=== PATIENT | female | born 1970 | race Caucasian/White ===

== ENCOUNTER → 2018-01-02 | Outpatient (REF) | payer SELFPAY, OTHER ==
[2018-01-02 12:04] LABS: HEMATOCRIT 43.3 % (36.0-47.0); HEMOGLOBIN 14.2 g/dl (12.0-15.5); MEAN CORPUSCULAR HEMOGLOBIN 28.6 pg (27.0-33.0); MEAN CORPUSCULAR HGB CONC 32.8 g/dl (32.0-36.5); MEAN CORPUSCULAR VOLUME 87.3 fl (80.0-96.0); PLATELET COUNT, AUTOMATED 271 10^3/uL (150-450); RED BLOOD COUNT 4.96 10^6/uL (4.00-5.40); RED CELL DISTRIBUTION WIDTH 12.3 % (11.5-14.5)
[2018-01-02 12:25] LABS: INR 2.45; PROTHROMBIN TIME 27.1 SECONDS (12.1-14.4)
== END ==
LOC: M SFHCPLAZ 09:33
DX: Z51.81 Encounter for therapeutic drug level monitoring (principal); Z79.899 Other long term (current) drug therapy

== ENCOUNTER 2020-04-09 08:23 | Emergency (ER) | payer OTHER, SELFPAY ==
[~2020-04-09] VITALS: Ht 172.7 cm; Wt 84.0 kg
[~2020-04-09 08:23] MED LIST: ASTELIN NASAL; AUG875 PO; BENADRYL25 PO; BIAXIN500 PO; COUM1TAB17; DESONIDECR TOPICAL; FERR325T; FLEXERIL10 PO; NASONEX NASAL; NEXIUM40 PO; PROTONIX40 PO; REGLAN10 PO; TESSALO100 PO; ZANTAC150 PO; ZITHROZPAK PO
[2020-04-09 09:10] VITALS: BP 136/83
[2020-04-09] MEDS ORDERED: DOXY100C37 PO (09:16)
[2020-04-09 09:36] LABS: ALT/SGPT 41 U/L (12-78); BILIRUBIN,DIRECT < 0.1 MG/DL (0.0-0.2); BILIRUBIN,TOTAL 0.4 MG/DL (0.2-1.0); TOTAL PROTEIN 7.6 GM/DL (6.4-8.2)
[2020-04-09 09:37] LABS: ALBUMIN 4.1 GM/DL (3.2-5.2)
[2020-04-11 17:08] LABS: Lyme Disease IgG/IgM Antibodie <0.91 ISR (0.00-0.90); Lyme Disease IgM Ab Quantitati <0.80 index (0.00-0.79)
== END 2020-04-09 09:43 | disposition home or self-care (01) ==
LOC: M ED 08:23
DX: R21 Rash and other nonspecific skin eruption (principal); M79.10 Myalgia, unspecified site; A69.20 Lyme disease, unspecified; J45.909 Unspecified asthma, uncomplicated; K58.9 Irritable bowel syndrome, unspecified; D68.59 Other primary thrombophilia; Z86.718 Personal history of other venous thrombosis and embolism; Z79.01 Long term (current) use of anticoagulants; Z88.8 Allergy status to other drugs, medicaments and biological substances

== ENCOUNTER → 2020-04-12 | Outpatient (CLI) | payer SELFPAY ==
[~2020-04-12] MED LIST changes: +DOXY100C37 PO
[2020-04-12 17:23] LABS: INR 1.91; PROTHROMBIN TIME 22.3 SECONDS (12.5-14.3)
== END ==
LOC: M LAB 16:13
PROVIDERS: ATTEND Physician Assistant Medical
DX: A69.29 Other conditions associated with Lyme disease (principal)

== ENCOUNTER → 2020-06-02 | Outpatient (CLI) | payer SELFPAY ==
--- NOTE | 2020-06-02 15:32 | REP ---
INDICATION: N63.31 LUMP OF AXILLARY TAIL OF RT BREAST. COMPARISON: 06/26/2007. TECHNIQUE: MLO and CC views bilateral breasts performed with tomosynthesis. Focused right axillary ultrasound performed. FINDINGS: Moderate fibroglandular tissue is seen bilaterally. There is no suspicious mass or architectural distortion. There are no clustered microcalcifications. Ultrasound right axillary region performed at the site of the palpable lump. At that location there are 2 morphologically normal appearing lymph nodes with fatty santi, measuring 1.8 x 1.7 x 0.9 cm and 1.8 x 1.8 x 1.2 cm. The Volpara volumetric breast density pattern is B. IMPRESSION: BIRADS/ACR category 2 benign. No mass or clustered microcalcifications. At the site of the palpable lump in the right axillary region 2 morphologically normal appearing lymph nodes are present. These do not appear to be suspicious. Clinical correlation and follow-up recommended. This patient's Tyrer-Cuzick lifetime breast cancer risk assessment score is 8.0%. This mammogram was interpreted with the aid of an FDA-approved computer-aided detection system. The patient states she had a clinical breast exam in May 2020. The patient letter being requested is M2. RECOMMENDATION: Repeat screening mammography recommended 1 year (for women over 40). Recommend clinical correlation and follow-up of right axillary lymph nodes. <Electronically signed by Navneet Hyde > 06/02/20 1527
== END ==
LOC: M WHC 12:59
PROVIDERS: ATTEND Nurse Practitioner Family
DX: N63.31 Unspecified lump in axillary tail of the right breast (principal)

== ENCOUNTER → 2021-05-16 | Outpatient (CLI) | payer SELFPAY ==
[~2021-05-16] MED LIST changes: +DOXY-443 PO; -DOXY100C37 PO
[2021-05-16 10:53] LABS: HEMATOCRIT 43.1 % (36.0-47.0); MEAN CORPUSCULAR HGB CONC 32.5 g/dl (32.0-36.5); MEAN CORPUSCULAR VOLUME 89.2 fl (80.0-96.0); PLATELET COUNT, AUTOMATED 280 10^3/uL (150-450); RED BLOOD COUNT 4.83 10^6/uL (4.00-5.40); WHITE BLOOD COUNT 6.8 10^3/uL (4.0-10.0)
[2021-05-16 11:24] LABS: ALBUMIN 3.8 GM/DL (3.2-5.2); ALT/SGPT 48 U/L (12-78); BILIRUBIN,TOTAL 0.3 MG/DL (0.2-1.0); BLOOD UREA NITROGEN 17 MG/DL (7-18); CARBON DIOXIDE LEVEL 29 MEQ/L (21-32); CHLORIDE LEVEL 108 MEQ/L (98-107); CHOLESTEROL LEVEL 322 MG/DL (<200); CHOLESTEROL RISK RATIO 6.075 (<5); CREATININE FOR GFR 0.77 MG/DL (0.55-1.30); GLOMERULAR FILTRATION RATE > 60.0 (>51); GLUCOSE, FASTING 99 MG/DL (70-100); HDL CHOLESTEROL 53 MG/DL (>40); LDL CHOLESTEROL 215 MG/DL (<100); NON-HDL-C 269 MG/DL; POTASSIUM SERUM 3.6 MEQ/L (3.5-5.1); SODIUM LEVEL 142 MEQ/L (136-145); TOTAL PROTEIN 7.2 GM/DL (6.4-8.2); TRIGLYCERIDES LEVEL 271 MG/DL (<150)
== END ==
LOC: M LAB 10:01
PROVIDERS: ATTEND Nurse Practitioner Adult Health
DX: E78.2 Mixed hyperlipidemia (principal); Z79.01 Long term (current) use of anticoagulants; D68.59 Other primary thrombophilia

== ENCOUNTER → 2022-06-13 | Outpatient (CLI) | payer SELFPAY ==
[2022-06-13 13:40] LABS: HEMATOCRIT 43.8 % (36.0-47.0); HEMOGLOBIN 13.9 g/dl (12.0-15.5); MEAN CORPUSCULAR HGB CONC 31.7 g/dl (32.0-36.5); MEAN CORPUSCULAR VOLUME 91.3 fl (80.0-96.0); PLATELET COUNT, AUTOMATED 294 10^3/uL (150-450); WHITE BLOOD COUNT 6.5 10^3/uL (4.0-10.0)
[2022-06-13 14:12] LABS: ALBUMIN 3.9 G/DL (3.2-5.2); ALKALINE PHOSPHATASE 89 U/L (46-116); ALT/SGPT 41 U/L (7.0-40); AST/SGOT 25 U/L (<34); BILIRUBIN,TOTAL 0.4 MG/DL (0.3-1.2); BLOOD UREA NITROGEN 19 MG/DL (9-23); CALCIUM LEVEL 9.5 MG/DL (8.5-10.1); CARBON DIOXIDE LEVEL 30 MMOL/L (20-31); CHLORIDE LEVEL 104 MMOL/L (98-107); CHOLESTEROL LEVEL 284 MG/DL (<200); CHOLESTEROL RISK RATIO 5.57 (<5); CREATININE FOR GFR 0.72 MG/DL (0.55-1.30); GLOMERULAR FILTRATION RATE > 60.0 (>51); GLUCOSE, FASTING 88 MG/DL (60-100); HDL CHOLESTEROL 50.9 MG/DL (>40); LDL CHOLESTEROL 185.3 MG/DL (<100); NON-HDL-C 233 MG/DL; POTASSIUM SERUM 4.3 MMOL/L (3.5-5.1); SODIUM LEVEL 140 MMOL/L (136-145); TOTAL PROTEIN 7.2 G/DL (5.7-8.2); TRIGLYCERIDES LEVEL 239 MG/DL (<150)
== END ==
LOC: M PLALAB 09:31
PROVIDERS: ATTEND Nurse Practitioner Adult Health
DX: E78.2 Mixed hyperlipidemia (principal); D68.59 Other primary thrombophilia; Z79.01 Long term (current) use of anticoagulants

== ENCOUNTER → 2022-08-02 | Outpatient (REF) | payer OTHER | LOC: M SFHCPLAZ 17:26 | PROVIDERS: ATTEND Nurse Practitioner Adult Health | DX: Z01.419 Encounter for gynecological examination (general) (routine) without abnormal findings (principal); R87.610 Atypical squamous cells of undetermined significance on cytologic smear of cervix (ASC-US) | CPT/HCPCS: 87624; G0123 ==

== ENCOUNTER → 2022-08-02 | Outpatient (CLI) | payer OTHER | LOC: M WHC 13:05 | PROVIDERS: ATTEND Nurse Practitioner Adult Health | DX: Z12.31 Encounter for screening mammogram for malignant neoplasm of breast (principal) ==

== ENCOUNTER 2022-09-17 08:00 | Outpatient (REF) | payer OTHER ==
[~2022-09-17] VITALS: Ht 170.2 cm; Wt 80.9 kg
[~2022-09-17 08:00] MED LIST changes: +ATOR1TAB19 PO; +LIDOCAINE 2% 100MG/5ML SDV (FOR ANES.) As Ordered ONE; +NS 1,000 ML IV ONE; +WARF-23; +propofoL 200 MG/20 ML VIAL As Ordered ONE
[2022-09-17 09:13] VITALS: TEMP 97.3
[2022-09-17 09:25] VITALS: BP 102/54; O2SAT 98
== END 2022-09-17 09:37 ==
LOC: M OPP 08:00 → EDSTATUS 09:15 → M OPP 09:37
PROVIDERS: ATTEND Internal Medicine Gastroenterology
DX: Z86.010 Personal history of colon polyps (principal); Z80.0 Family history of malignant neoplasm of digestive organs; E78.5 Hyperlipidemia, unspecified; D75.9 Disease of blood and blood-forming organs, unspecified; Z88.6 Allergy status to analgesic agent; Z79.01 Long term (current) use of anticoagulants; Z79.899 Other long term (current) drug therapy

== ENCOUNTER 2023-02-20 10:31 | Emergency (ER) | payer OTHER, SELFPAY ==
[~2023-02-20] VITALS: Ht 170.2 cm; Wt 81.7 kg
[2023-02-20 10:31] VITALS: O2SAT 97
[~2023-02-20 10:31] MED LIST changes: -LIDOCAINE 2% 100MG/5ML SDV (FOR ANES.) As Ordered ONE; -NS 1,000 ML IV ONE; -WARF-23; +WARF-23 PO; -propofoL 200 MG/20 ML VIAL As Ordered ONE
[2023-02-20] MEDS ORDERED: ATOR1TAB19 (11:14)
[2023-02-20] MEDS ORDERED: ALBU8.5H (11:18)
[2023-02-20 12:34] LABS: APPEARANCE, URINE CLOUDY (CLEAR); BACTERIA, URINE AUTO 2+ (NEGATIVE); BILIRUBIN, URINE AUTO NEGATIVE (NEGATIVE); BLOOD, URINE BLOOD 3+ (NEGATIVE); COLOR, URINE YELLOW (YELLOW); GLUCOSE, URINE (UA) AUTO NEGATIVE (NEGATIVE); KETONE, URINE AUTO NEGATIVE (NEGATIVE); LEUKOCYTE ESTERASE, URINE AUTO 3+ (NEGATIVE); MUCUS, URINE SMALL (NEGATIVE); NITRITE, URINE AUTO NEGATIVE (NEGATIVE); PROTEIN, URINE AUTO 2+ mg/dL (NEGATIVE); RBC, URINE AUTO 78 /HPF (0-3); SQUAMOUS EPITHELIAL CELL UR AU 0 /HPF (0-6); UROBILINOGEN, URINE AUTO 0.2 mg/dL (0.0-2.0); WBC, URINE AUTO 180 /HPF (0-3)
[2023-02-20 12:42] LABS: BASO % 0.3 % (0.0-1.0); EOS # 0.1 10^3/uL (0.0-0.5); EOS % 0.9 % (0.0-3.0); HEMATOCRIT 41.8 % (36.0-47.0); HEMOGLOBIN 13.6 g/dl (12.0-15.5); LYMPH # 1.5 10^3/uL (1.5-5.0); LYMPH % 13.1 % (24.0-44.0); MEAN CORPUSCULAR HEMOGLOBIN 28.8 pg (27.0-33.0); MEAN CORPUSCULAR HGB CONC 32.5 g/dl (32.0-36.5); MEAN CORPUSCULAR VOLUME 88.6 fl (80.0-96.0); MONO # 0.8 10^3/uL (0.0-0.8); MONO % 6.9 % (2.0-8.0); NEUTROPHILS % 78.5 % (36.0-66.0); PLATELET COUNT, AUTOMATED 259 10^3/uL (150-450); RED BLOOD COUNT 4.72 10^6/uL (4.00-5.40); WHITE BLOOD COUNT 11.5 10^3/uL (4.0-10.0)
[2023-02-20 13:01] LABS: LIPASE 26 U/L (12-53)
[2023-02-20 13:04] LABS: ALBUMIN 3.9 G/DL (3.2-5.2); ALKALINE PHOSPHATASE 91 U/L (46-116); ALT/SGPT 43 U/L (7.0-40); AST/SGOT 23 U/L (<34); BILIRUBIN,DIRECT 0.1 MG/DL (<0.4); BILIRUBIN,TOTAL 0.4 MG/DL (0.3-1.2); BLOOD UREA NITROGEN 15 MG/DL (9-23); CALCIUM LEVEL 9.3 MG/DL (8.5-10.1); CARBON DIOXIDE LEVEL 31 MMOL/L (20-31); CHLORIDE LEVEL 108 MMOL/L (98-107); CREATININE FOR GFR 0.66 MG/DL (0.55-1.30); GLOMERULAR FILTRATION RATE > 60.0 (>51); GLUCOSE, FASTING 103 MG/DL (60-100); POTASSIUM SERUM 3.6 MMOL/L (3.5-5.1); SODIUM LEVEL 144 MMOL/L (136-145); TOTAL PROTEIN 6.8 G/DL (5.7-8.2)
[2023-02-20] MEDS ORDERED: ONDANSETRON 4MG 2ML VIAL IV ONE (13:50)
[2023-02-20] MEDS ORDERED: ACETAMINOPHEN *IV* 1,000 MG in IV 1 EA IV ONE (13:50)
[2023-02-20] MEDS ORDERED: NS 1,000 ML IV ONE (13:50)
[2023-02-20] MEDS ORDERED: TAMSULOSIN 0.4 MG CAP PO ONE (14:45)
[2023-02-20] MEDS ORDERED: MORPHINE 4 MG/ML 1ML VIAL IV ONE (14:45)
[2023-02-20] MEDS ORDERED: CEFDINIR 300 MG CAP (OMNICEF) PO ONE (14:45)
[2023-02-20] MEDS ORDERED: HYDR-3713 PO (15:33)
[2023-02-20] MEDS ORDERED: CEFD300C41 PO (15:33)
[2023-02-20] MEDS ORDERED: FLOM0.4C39 PO (15:33)
[2023-02-20 16:00] VITALS: BP 114/70; TEMP 98.1
== END 2023-02-20 16:01 | disposition home or self-care (01) ==
LOC: M ED 10:31
DX: N20.1 Calculus of ureter (principal); D72.829 Elevated white blood cell count, unspecified; R10.9 Unspecified abdominal pain; Z79.01 Long term (current) use of anticoagulants; Z79.899 Other long term (current) drug therapy; Z88.8 Allergy status to other drugs, medicaments and biological substances; Z88.6 Allergy status to analgesic agent
CPT/HCPCS: 74176; 80048; 80076; 81001; 83690; 85025; 96365; 96366; 96375; 99284; J0131; J2405

== ENCOUNTER → 2023-05-15 | Outpatient (CLI) | payer SELFPAY ==
[~2023-05-15] MED LIST changes: +ALBU8.5H; +ATOR1TAB19; +CEFD1CAP9 PO; +FLOM0.4C39 PO; +HYDR-3713 PO
[2023-05-15 12:18] LABS: HEMOGLOBIN A1c 5.6 % (4.0-6.0)
[2023-05-15 12:26] LABS: HEMOGLOBIN 13.8 g/dl (12.0-15.5); MEAN CORPUSCULAR HGB CONC 32.1 g/dl (32.0-36.5); MEAN CORPUSCULAR VOLUME 90.3 fl (80.0-96.0); PLATELET COUNT, AUTOMATED 277 10^3/uL (150-450); RED BLOOD COUNT 4.76 10^6/uL (4.00-5.40); WHITE BLOOD COUNT 6.8 10^3/uL (4.0-10.0)
[2023-05-15 12:36] LABS: ALBUMIN 3.9 G/DL (3.2-5.2); ALKALINE PHOSPHATASE 86 U/L (46-116); ALT/SGPT 59 U/L (7.0-40); AST/SGOT 27 U/L (<34); BILIRUBIN,TOTAL 0.5 MG/DL (0.3-1.2); BLOOD UREA NITROGEN 21 MG/DL (9-23); CALCIUM LEVEL 9.2 MG/DL (8.5-10.1); CARBON DIOXIDE LEVEL 28 MMOL/L (20-31); CHLORIDE LEVEL 107 MMOL/L (98-107); CHOLESTEROL LEVEL 233 MG/DL (<200); CREATININE FOR GFR 0.73 MG/DL (0.55-1.30); GLOMERULAR FILTRATION RATE > 60.0 (>51); GLUCOSE, FASTING 111 MG/DL (60-100); HDL CHOLESTEROL 55.4 MG/DL (>40); NON-HDL-C 177.6 MG/DL; POTASSIUM SERUM 3.6 MMOL/L (3.5-5.1); SODIUM LEVEL 143 MMOL/L (136-145); TOTAL PROTEIN 6.8 G/DL (5.7-8.2); TRIGLYCERIDES LEVEL 148 MG/DL (<150)
== END ==
LOC: M PLALAB 09:51
PROVIDERS: ATTEND Nurse Practitioner Adult Health
DX: E78.2 Mixed hyperlipidemia (principal); D68.59 Other primary thrombophilia; Z79.01 Long term (current) use of anticoagulants

== ENCOUNTER → 2023-08-14 | Outpatient (CLI) | payer OTHER | LOC: M WHC 13:43 | PROVIDERS: ATTEND Nurse Practitioner Adult Health | DX: Z12.31 Encounter for screening mammogram for malignant neoplasm of breast (principal); R92.333 Mammographic heterogeneous density, bilateral breasts ==

== ENCOUNTER → 2024-05-25 | Outpatient (REF) | payer OTHER ==
[~2024-05-25] MED LIST changes: +DOXY-441 PO; -DOXY-443 PO
== END ==
LOC: M SFHCPLAZ 15:04
PROVIDERS: ATTEND Physician Assistant Medical
DX: J06.9 Acute upper respiratory infection, unspecified (principal)

== ENCOUNTER → 2024-06-17 | Outpatient (CLI) | payer OTHER ==
[2024-06-17 13:25] LABS: HEMATOCRIT 43.2 % (36.0-47.0); MEAN CORPUSCULAR HEMOGLOBIN 28.7 pg (27.0-33.0); MEAN CORPUSCULAR HGB CONC 32.4 g/dl (32.0-36.5); MEAN CORPUSCULAR VOLUME 88.5 fl (80.0-96.0); PLATELET COUNT, AUTOMATED 302 10^3/uL (150-450); RED BLOOD COUNT 4.88 10^6/uL (4.00-5.40); WHITE BLOOD COUNT 6.3 10^3/uL (4.0-10.0)
[2024-06-17 13:52] LABS: ALKALINE PHOSPHATASE 93 U/L (35-104); ALT/SGPT 50 U/L (7.0-40); AST/SGOT 29 U/L (<34); BILIRUBIN,TOTAL 0.4 MG/DL (0.3-1.2); BLOOD UREA NITROGEN 18 MG/DL (9-23); CALCIUM LEVEL 9.6 MG/DL (8.5-10.1); CARBON DIOXIDE LEVEL 28 MMOL/L (20-31); CHLORIDE LEVEL 109 MMOL/L (98-107); CHOLESTEROL LEVEL 225 MG/DL (<200); CHOLESTEROL RISK RATIO 4.13 (<5); CREATININE FOR GFR 0.68 MG/DL (0.55-1.30); GLOMERULAR FILTRATION RATE > 60.0 (>51); GLUCOSE, FASTING 100 MG/DL (60-100); HDL CHOLESTEROL 54.4 MG/DL (>40); LDL CHOLESTEROL 141.4 MG/DL (<100); NON-HDL-C 170.6 MG/DL; POTASSIUM SERUM 4.1 MMOL/L (3.5-5.1); SODIUM LEVEL 143 MMOL/L (136-145); TOTAL PROTEIN 7.2 G/DL (5.7-8.2); TRIGLYCERIDES LEVEL 146 MG/DL (<150)
[2024-06-17 13:53] LABS: FREE T4 1.06 NG/DL (0.89-1.76)
[2024-06-17 13:54] LABS: FERRITIN 126.2 NG/ML (7.3-270.7); THYROID STIMULATING HORMONE 1.043 uIU/ML (0.55-4.78)
== END ==
LOC: M PLALAB 10:35
PROVIDERS: ATTEND Nurse Practitioner Adult Health
DX: Z00.00 Encounter for general adult medical examination without abnormal findings (principal); D68.59 Other primary thrombophilia; Z79.01 Long term (current) use of anticoagulants; E55.9 Vitamin D deficiency, unspecified; E78.5 Hyperlipidemia, unspecified; M79.10 Myalgia, unspecified site

== ENCOUNTER → 2024-07-17 | Outpatient (CLI) | payer OTHER | LOC: M SOG 07:54 | PROVIDERS: ATTEND Physician Assistant | DX: M25.641 Stiffness of right hand, not elsewhere classified (principal); M25.642 Stiffness of left hand, not elsewhere classified ==

== ENCOUNTER 2024-08-02 09:20 | Emergency (ER) | payer OTHER ==
[~2024-08-02] VITALS: Ht 170.2 cm; Wt 80.5 kg
[2024-08-02] MEDS ORDERED: AZIT-12 (09:37)
[2024-08-02] MEDS ORDERED: EZET10TA21 (09:40)
[2024-08-02 09:48] LABS: HEMOGLOBIN 14.9 g/dl (12.0-15.5); MEAN CORPUSCULAR HEMOGLOBIN 29.4 pg (27.0-33.0); MEAN CORPUSCULAR HGB CONC 33.9 g/dl (32.0-36.5); MEAN CORPUSCULAR VOLUME 86.8 fl (80.0-96.0); PLATELET COUNT, AUTOMATED 318 10^3/uL (150-450); RED BLOOD COUNT 5.07 10^6/uL (4.00-5.40); WHITE BLOOD COUNT 8.4 10^3/uL (4.0-10.0)
[2024-08-02] MEDS: ONDANSETRON 4MG ORAL DISINTEGRATING TAB PO ONE (10:25)
[2024-08-02 10:28] LABS: BLOOD UREA NITROGEN 21 MG/DL (9-23); CALCIUM LEVEL 9.1 MG/DL (8.5-10.1); CARBON DIOXIDE LEVEL 24 MMOL/L (20-31); CHLORIDE LEVEL 104 MMOL/L (98-107); GLOMERULAR FILTRATION RATE > 60.0 (>51); GLUCOSE, FASTING 121 MG/DL (60-100); POTASSIUM SERUM 3.5 MMOL/L (3.5-5.1); SODIUM LEVEL 141 MMOL/L (136-145)
[2024-08-02] MEDS ORDERED: ONDA-282 PO (11:26)
[2024-08-02] MEDS ORDERED: AMOX875T2 PO (11:26)
[2024-08-02 11:34] VITALS: BP 129/70; TEMP 98.1; O2SAT 99
== END 2024-08-02 11:43 | disposition home or self-care (01) ==
LOC: M ED 09:20
DX: J01.00 Acute maxillary sinusitis, unspecified (principal); Z88.6 Allergy status to analgesic agent; Z88.8 Allergy status to other drugs, medicaments and biological substances

== ENCOUNTER → 2024-08-12 | Outpatient (CLI) | payer OTHER ==
[~2024-08-12] MED LIST changes: +AMOX875T2 PO; +AZIT-12; +EZET10TA21; +ONDA-282 PO
== END ==
LOC: M SOG 10:59
PROVIDERS: ATTEND Physician Assistant
DX: M54.12 Radiculopathy, cervical region (principal); R20.2 Paresthesia of skin

== ENCOUNTER 2024-11-25 09:48 | Outpatient (RCR) | payer OTHER ==
[~2024-11-25 09:48] MED LIST changes: -FLOM0.4C39 PO; +TAMS-18 PO
== END 2024-12-17 ==
LOC: M PT 09:48
PROVIDERS: ATTEND Physician Assistant
DX: M50.123 Cervical disc disorder at C6-C7 level with radiculopathy (principal)

== ENCOUNTER → 2024-12-20 | Outpatient (REF) | payer OTHER | LOC: M SFHCPLAZ 10:26 | PROVIDERS: ATTEND Nurse Practitioner Adult Health | DX: K52.9 Noninfective gastroenteritis and colitis, unspecified (principal) ==

== ENCOUNTER → 2024-12-23 | Outpatient (CLI) | payer OTHER | LOC: M RAD 10:55 | PROVIDERS: ATTEND Physician Assistant | DX: M50.123 Cervical disc disorder at C6-C7 level with radiculopathy (principal); M48.02 Spinal stenosis, cervical region ==

== ENCOUNTER → 2024-12-23 | Outpatient (CLI) | payer OTHER ==
[2024-12-23 15:12] LABS: ALT/SGPT 29 U/L (7.0-40); AST/SGOT 18 U/L (<34); CALCIUM LEVEL 9.2 MG/DL (8.5-10.1); CARBON DIOXIDE LEVEL 29 MMOL/L (20-31); CHLORIDE LEVEL 105 MMOL/L (98-107); CHOLESTEROL LEVEL 247 MG/DL (<200); CHOLESTEROL RISK RATIO 5.01 (<5); CREATININE FOR GFR 0.70 MG/DL (0.55-1.30); GLOMERULAR FILTRATION RATE > 90.0 (>51); LDL CHOLESTEROL 155.7 MG/DL (<100); NON-HDL-C 197.7 MG/DL; PLATELET COUNT, AUTOMATED 246 10^3/uL (150-450); POTASSIUM SERUM 3.7 MMOL/L (3.5-5.1); SODIUM LEVEL 144 MMOL/L (136-145); TRIGLYCERIDES LEVEL 210 MG/DL (<150)
[2024-12-23 15:15] LABS: FREE T4 1.27 NG/DL (0.89-1.76)
[2024-12-23 15:41] LABS: ESTIMATED AVERAGE GLUCOSE 114.0 MG/DL (60-110)
== END ==
LOC: M PLALAB 12:25
PROVIDERS: ATTEND Nurse Practitioner Adult Health
DX: D68.59 Other primary thrombophilia (principal); E78.2 Mixed hyperlipidemia; M79.10 Myalgia, unspecified site; K52.9 Noninfective gastroenteritis and colitis, unspecified; Z79.01 Long term (current) use of anticoagulants

== ENCOUNTER → 2025-01-20 | Outpatient (CLI) | payer OTHER | LOC: M WHC 09:38 | PROVIDERS: ATTEND Nurse Practitioner Adult Health | DX: Z12.31 Encounter for screening mammogram for malignant neoplasm of breast (principal); R92.333 Mammographic heterogeneous density, bilateral breasts ==

== ENCOUNTER → 2025-03-25 | Outpatient (CLI) | payer OTHER ==
[~2025-03-25] MED LIST changes: -EZET10TA21; +EZET10TA57
== END ==
LOC: M RAD 12:32
PROVIDERS: ATTEND Neurological Surgery
DX: M48.02 Spinal stenosis, cervical region (principal)